=== PATIENT | female | born 1990 | race Caucasian/White ===

== ENCOUNTER 2018-07-15 11:15 | Emergency (ER) | payer OTHER ==
[~2018-07-15] VITALS: Ht 170.2 cm; Wt 56.7 kg
[~2018-07-15 11:15] MED LIST: AMOX1TAB12 PO; ATIVAN0.5 MG; CEFADROXIL500 MG PO; ESTAZOLAM2 MG; GILTUSS TR TAB1 EACH PO; INTESTINEX680 MG PO; LAMICTAL5 MG; LEVAQUIN500 MG PO; MAXITROL EYE DRO5 ML OP; NAPR500T14 PO; NECON1 TA1; REGLAN 10 MG PO; SEPTRA DS TABLE1 TAB PO; URETRON D/S TAB1 TAB PO; URETRON DS1 TAB PO; VISTARIL50 MG; ZANTAC150 M3 PO; ZANTAC300 MG PO; ZITHROMAX200 MG PO; ZOLOFT25 MG; ZOLOFT50 MG; ZYRTEC10 MG PO
== END 2018-07-15 13:55 | disposition home or self-care (01) ==
LOC: ER 11:15
DX: S00.83XA Contusion of other part of head, initial encounter (principal); W18.09XA Striking against other object with subsequent fall, initial encounter; Y93.89 Activity, other specified; Y92.098 Other place in other non-institutional residence as the place of occurrence of the external cause; Y99.8 Other external cause status

== ENCOUNTER 2025-01-09 18:14 | Emergency (ER) | payer OTHER ==
[~2025-01-09] VITALS: Ht 170.2 cm; Wt 56.7 kg
[2025-01-09 19:09] VITALS: BP 108/78; O2SAT 97
[2025-01-09] MEDS ORDERED: LACTOBACILLUS ACIDOPHILUS 1 CAP CAP PO ONE ×2 (19:30→19:33)
[2025-01-09] MEDS ORDERED: 0.9 % SODIUM CHLORIDE 1,000 ML IV ONE (19:30)
[2025-01-09] MEDS ORDERED: FAMOTIDINE/PF 20 MG/2 ML VIAL IV ONE (19:30)
[2025-01-09] MEDS ORDERED: ONDANSETRON HCL 2 MG/ML VIAL IV ONE (19:30)
[2025-01-09] MEDS ORDERED: FAMOTIDINE/PF 20 MG/2 ML VIAL ONE (19:33)
[2025-01-09] MEDS ORDERED: ONDANSETRON HCL 2 MG/ML VIAL ONE (19:33)
[2025-01-09 19:57] LABS: BASO % 0.2 % (0.1-1.2); HEMOGLOBIN 13.5 g/dL (11.2-15.7); LYMPH # 0.52 (1.18-3.74); LYMPH % 6.3 % (19.3-53.1); MEAN CORPUSCULAR HEMOGLOBIN 29.4 pg (25.6-32.2); MONO # 0.38 (0.24-0.82); MONO % 4.6 % (4.7-12.5); NEUT # 7.27 (1.56-6.13); NEUT % 88.5 % (34.0-71.1); PLATELET COUNT 230 K/uL (163-369); RED BLOOD COUNT 4.59 M/uL (3.93-5.22); RED CELL DISTRIBUTION WIDTH 12.4 % (11.6-14.4)
[2025-01-09 20:23] LABS: BILIRUBIN TOTAL 0.73 mg/dL (0.3-1.2); CALCIUM 9.3 mg/dL (8.5-10.1); CREATININE SERUM 0.61 mg/dL (0.55-1.02); GFR 111.61; GLOBULINA 3.5 G/DL (2.4-3.5); POTASSIUM 3.51 mEq/L (3.5-5.1); TOTAL PROTEIN 7.5 gm/dL (6.4-8.2)
[2025-01-09] MEDS ORDERED: KETOROLAC TROMETHAMINE 30 MG VIAL IV ONE (21:15)
[2025-01-09] MEDS ORDERED: KETOROLAC TROMETHAMINE 30 MG VIAL ONE (21:41)
[2025-01-09] MEDS ORDERED: ONDANSETRON ODT8 MG PO (23:10)
[2025-01-09] MEDS ORDERED: CARAFATE1 GM PO (23:10)
[2025-01-09] MEDS ORDERED: PEPCID AC20 MG PO (23:10)
== END 2025-01-09 23:51 | disposition home or self-care (01) ==
LOC: ER 21:15
PROVIDERS: General Practice
DX: K52.9 Noninfective gastroenteritis and colitis, unspecified (principal)

== ENCOUNTER 2025-01-18 01:29 | Emergency (ER) | payer OTHER ==
[~2025-01-18] VITALS: Ht 170.2 cm; Wt 56.7 kg
[~2025-01-18 01:29] MED LIST changes: +CARAFATE1 GM PO; +ONDANSETRON ODT8 MG PO; +PEPCID AC20 MG PO
[2025-01-18] MEDS ORDERED: 0.9 % SODIUM CHLORIDE 1,000 ML IV STA (02:03)
[2025-01-18] MEDS ORDERED: ONDANSETRON HCL 2 MG/ML VIAL IV STA (02:04)
[2025-01-18] MEDS ORDERED: FAMOtidine 10 MG/ML (4ML VIAL) IV PUSH STA (02:05)
[2025-01-18] MEDS ORDERED: KETOROLAC TROMETHAMINE 30 MG VIAL IV STA (02:05)
[2025-01-18] MEDS ORDERED: KETOROLAC TROMETHAMINE 30 MG VIAL ONE (02:10)
[2025-01-18] MEDS ORDERED: HYOSCYAMINE SULFATE 0.125 MG TAB.SUBL ONE (02:11)
[2025-01-18] MEDS ORDERED: FAMOTIDINE/PF 20 MG/2 ML VIAL ONE (02:11)
[2025-01-18] MEDS ORDERED: ONDANSETRON HCL 2 MG/ML VIAL ONE (02:11)
[2025-01-18] MEDS ORDERED: HYOSCYAMINE SULFATE 0.125 MG TAB.SUBL SL ONE (02:15)
[2025-01-18 02:42] LABS: BASO % 0.2 % (0.1-1.2); EOS # 0.01 (0.04-0.54); EOS % 0.1 % (0.7-7.0); HEMOGLOBIN 12.9 g/dL (11.2-15.7); LYMPH # 0.82 (1.18-3.74); LYMPH % 5.4 % (19.3-53.1); MONO # 0.62 (0.24-0.82); MONO % 4.1 % (4.7-12.5); NEUT # 13.64 (1.56-6.13); NEUT % 89.7 % (34.0-71.1); PLATELET COUNT 332 K/uL (163-369); RED BLOOD COUNT 4.45 M/uL (3.93-5.22)
[2025-01-18 03:07] LABS: ALBUMIN 4.4 gm/dL (3.4-5.0); BILIRUBIN TOTAL 0.49 mg/dL (0.3-1.2); CALCIUM 9.9 mg/dL (8.5-10.1); CREATININE SERUM 0.67 mg/dL (0.55-1.02); GFR 100.16; GLOBULINA 3.7 G/DL (2.4-3.5); POTASSIUM 3.44 mEq/L (3.5-5.1); TOTAL PROTEIN 8.1 gm/dL (6.4-8.2)
[2025-01-18] MEDS ORDERED: PROMETHAZINE HCL 50 MG/ML AMPUL IM ONE (06:29)
[2025-01-18] MEDS ORDERED: PROMETHAZINE HCL 50 MG/ML AMPUL IM STA (06:29)
[2025-01-18] MEDS ORDERED: PIPERACILLIN/TAZOBACTAM SODIUM 3.375 GM VIAL IV STA (06:55)
[2025-01-18] MEDS ORDERED: PIPERACILLIN/TAZOBACTAM SODIUM 3.375 GM VIAL IV ONE (07:12)
[2025-01-18 18:43] LABS: BASO % 0.4 % (0.1-1.2); EOS # 0.06 (0.04-0.54); EOS % 0.8 % (0.7-7.0); HEMATOCRIT 35.2 % (34.1-44.9); HEMOGLOBIN 12.1 g/dL (11.2-15.7); LYMPH # 2.03 (1.18-3.74); LYMPH % 27.4 % (19.3-53.1); MEAN CORPUSCULAR HEMOGLOBIN 29.4 pg (25.6-32.2); MONO # 0.62 (0.24-0.82); MONO % 8.4 % (4.7-12.5); NEUT # 4.66 (1.56-6.13); NEUT % 62.7 % (34.0-71.1); PLATELET COUNT 304 K/uL (163-369); RED BLOOD COUNT 4.11 M/uL (3.93-5.22); RED CELL DISTRIBUTION WIDTH 12.4 % (11.6-14.4)
== END 2025-01-18 20:42 | disposition home or self-care (01) ==
LOC: ER 01:29
PROVIDERS: Emergency Medicine
DX: N83.292 Other ovarian cyst, left side (principal); N28.1 Cyst of kidney, acquired